=== PATIENT | male | born 1980 | race African-American/Black ===

== ENCOUNTER 2017-07-22 21:48 | Emergency (ER) | payer SELFPAY ==
[2017-07-22 22:00] VITALS: BP 118/67
--- NOTE | 2017-07-22 22:03 | ED Physician Documentation ---
General Adult - HISTORIAN Historian: patient - HPI Stated Complaint: MEDICATION REFILL Chief Complaint: General Adult Additional Information: Out of inhaler for a week. Wants a breathing treatment and an inhaler. OTR stone. - ROS CONST: no problems - PAST HX Past History: asthma Allergies/Adverse Reactions: Allergies Allergy/AdvReac Type Severity Reaction Status Date / Time No Known Allergies Allergy Verified 07/22/17 22:00 Home Medications: Ambulatory Orders Medication Instructions Recorded Albuterol Sulfate [ProAir 1 puff INH DAILY 07/22/17 [facility]] - SOCIAL HX Smoking History: cigarettes - FAMILY HX Family History: No - VITAL SIGNS Vital Signs: Vital Signs Temp Pulse Resp BP Pulse Ox 97.6 F 88 16 118/67 97 07/22/17 21:48 07/22/17 21:48 07/22/17 21:48 07/22/17 21:48 07/22/17 21:48 - REVIEWED ASSESSMENTS Nursing Assessment Reviewed: Yes Vitals Reviewed: Yes General Adult Physical Exam - PHYSICAL EXAM GENERAL APPEARANCE: unwashed EENT: eye inspection normal, ENT inspection normal, other (poor dentition) NECK: normal inspection RESPIRATORY: no resp distress, breath sounds normal CVS: reg rate & rhythm, heart sounds normal EXTREMITIES: normal range of motion (gait and stance) NEURO: CN's nml as tested, motor nml, sensation nml, cognition normal Discharge Clincal Impression: Asthma Qualifiers: Asthma severity: unspecified severity Asthma persistence: unspecified Asthma complication type: unspecified Qualified Code(s): J45.909 - Unspecified asthma, uncomplicated Referrals: Primary Doctor,No [Primary Care Provider] - 2 Days Condition: Good Disposition: HOME, SELF-CARE Decision to Admit: NO Decision Time: 22:00
== END 2017-07-22 22:01 | disposition home or self-care (01) ==
LOC: ED 21:48
DX: J45.909 Unspecified asthma, uncomplicated (principal)
CPT/HCPCS: 99282